=== PATIENT | male | born 1965 | race African-American/Black ===

== ENCOUNTER 2016-09-09 01:06 | Emergency (ER) | payer OTHER ==
[~2016-09-09] VITALS: Ht 165.1 cm; Wt 58.3 kg
[2016-09-09] MEDS ORDERED: NEURONTIN100 MG PO (01:30)
[2016-09-09] MEDS ORDERED: NAPROXEN500 MG PO (01:30)
[2016-09-09] MEDS ORDERED: LOTRISONE LOTIO30 ML TP (01:30)
[2016-09-09 01:55] VITALS: BP 111/86
== END 2016-09-09 02:11 | disposition home or self-care (01) ==
LOC: EME → EXP 01:06 → EME 01:06 → EDBD 01:06 → EXP 02:11
DX: M54.31 Sciatica, right side (principal); B35.3 Tinea pedis; F17.200 Nicotine dependence, unspecified, uncomplicated
CPT/HCPCS: 99281; 99284; J8540

== ENCOUNTER 2017-03-13 08:39 | Emergency (ER) | payer OTHER ==
[~2017-03-13] VITALS: Ht 165.1 cm; Wt 62.1 kg
[~2017-03-13 08:39] MED LIST: LOTRISONE LOTIO30 ML TP; NAPROXEN500 MG PO; NEURONTIN100 MG PO
[2017-03-13] MEDS ORDERED: VENTOLIN HFA18 GM IH (09:47)
[2017-03-13 09:54] LABS: MCHC 34.2 G/DL (30.0-36.0); MCV 87.8 FL (86-99); PLATELET COUNT 351 K/uL (156-360); RBC DIS.WIDTH-CV 14.6 % (11.8-14.6); RBC DIS.WIDTH-SD 47.2 % (39-53); RED BLOOD COUNT 4.33 M/uL (4.00-5.50); WHITE BLOOD COUNT 18.9 K/uL (4.1-10.2)
[2017-03-13 10:02] LABS: CHLORIDE 102 mEq/L (99-109); POTASSIUM 3.8 mEq/L (3.7-5.4); SODIUM 133 mEq/L (136-147)
[2017-03-13 10:03] LABS: GLUCOSE 122 mg/dL (70-99)
[2017-03-13 10:07] LABS: CREATININE 0.9 mg/dL (0.6-1.3); GFR ESTIMATE (CALCULATED) > 59 mL/min/ (58.99-99999)
[2017-03-13 10:08] LABS: UREA NITROGEN (BUN) 11 mg/dL (9-23)
[2017-03-13] MEDS ORDERED: ZITHROMAX Z-PA250 MG PO (10:20)
[2017-03-13] MEDS ORDERED: TESSALON200 MG PO (10:20)
[2017-03-13 10:33] VITALS: BP 115/78
== END 2017-03-13 10:34 | disposition home or self-care (01) ==
LOC: EME 08:39
PROVIDERS: Nurse Practitioner Family
DX: J18.9 Pneumonia, unspecified organism (principal); J06.9 Acute upper respiratory infection, unspecified; F17.200 Nicotine dependence, unspecified, uncomplicated
CPT/HCPCS: 71046; 80048; 85027; 94640; 99281; 99283

== ENCOUNTER 2017-03-13 22:49 | Inpatient (IN) | payer OTHER ==
[~2017-03-13] VITALS: Ht 165.1 cm; Wt 51.1 kg
[~2017-03-13 22:49] MED LIST changes: +TESSALON200 MG PO; +VENTOLIN HFA18 GM IH; +ZITHROMAX Z-PA250 MG PO
[2017-03-13 23:20] LABS: HEMATOCRIT 36.9 % (38.0-50.0); HEMOGLOBIN 12.9 G/DL (12.5-16.6); MCH 30.1 PG (29.0-34.0); PLATELET COUNT 367 K/uL (156-360); RBC DIS.WIDTH-CV 14.4 % (11.8-14.6); RBC DIS.WIDTH-SD 45.6 % (39-53); RED BLOOD COUNT 4.29 M/uL (4.00-5.50); WHITE BLOOD COUNT 21.3 K/uL (4.1-10.2)
[2017-03-13 23:30] LABS: CHLORIDE 104 mEq/L (99-109); POTASSIUM 3.6 mEq/L (3.7-5.4); SODIUM 135 mEq/L (136-147)
[2017-03-13 23:32] LABS: GLUCOSE 162 mg/dL (70-99)
[2017-03-13 23:35] LABS: GFR ESTIMATE (CALCULATED) > 59 mL/min/ (58.99-99999)
[2017-03-13 23:36] LABS: UREA NITROGEN (BUN) 17 mg/dL (9-23)
[2017-03-13 23:44] LABS: TROP-I INTERPRETATION NEGATIVE; TROPONIN-I < 0.01 ng/mL (0.0-0.30)
[2017-03-14 00:41] LABS: ALBUMIN 3.9 g/dL (3.2-4.8)
[2017-03-14 00:43] LABS: TOTAL PROTEIN 8.6 g/dL (6.4-8.3)
[2017-03-14 00:45] LABS: TOTAL BILIRUBIN 0.4 mg/dL (0.0-1.0)
[2017-03-14 00:46] LABS: ALKALINE PHOSPHATASE 107 IU/L (3-129)
[2017-03-14 00:49] LABS: ALT (GPT) 9 IU/L (3-49); AST (GOT) 11 IU/L (2-34); DIRECT BILIRUBIN 0.3 mg/dL (0.0-0.3)
[2017-03-14 00:50] LABS: CREATINE KINASE 99 IU/L (1-294); LIPASE 8 U/L (1.0-51.0)
[2017-03-14 04:09] VITALS: BP 116/74
[2017-03-14 07:30] VITALS: BP 120/71
[2017-03-14 11:19] LABS: HEMOGLOBIN A1c (GLYCOHEMOGLOB) 6.5 % (Below 5.7)
[2017-03-14 16:54] VITALS: BP 129/75
[2017-03-14 23:25] VITALS: BP 120/72
[2017-03-15 05:48] LABS: BASOPHIL (%) 0.1 % (0-1); EOSINOPHIL (%) 0.1 % (0-5); HEMATOCRIT 29.8 % (38.0-50.0); IMMATURE GRANULOCYTE (%) 0.8 % (0.0-0.7); LYMPHOCYTE (%) 11.7 % (15-42); LYMPHOCYTE COUNT 1.8 K/uL (1.0-2.8); MCH 29.2 PG (29.0-34.0); MCHC 33.9 G/DL (30.0-36.0); MCV 86.1 FL (86-99); MONOCYTE (%) 7.6 % (3-12); MONOCYTE COUNT 1.2 K/uL (0-0.8); NEUTROPHIL (%) 79.7 % (45-76); NEUTROPHIL COUNT 12.4 K/uL (1.8-6.4); PLATELET COUNT 343 K/uL (156-360); RBC DIS.WIDTH-CV 14.8 % (11.8-14.6); RBC DIS.WIDTH-SD 47.2 % (39-53); RED BLOOD COUNT 3.46 M/uL (4.00-5.50); WHITE BLOOD COUNT 15.6 K/uL (4.1-10.2)
[2017-03-15 05:51] LABS: CHLORIDE 110 MEQ/L (99-109); CREATININE 0.7 MG/DL (0.6-1.3); GFR ESTIMATE (CALCULATED) > 59 mL/min/ (58.99-99999); GLUCOSE 121 mg/dL (70-99); POTASSIUM 3.7 MEQ/L (3.7-5.4); SODIUM 141 MEQ/L (136-147); UREA NITROGEN (BUN) 12 mg/dL (9-23)
[2017-03-15 05:57] LABS: HEMOGLOBIN 10.1 G/DL (12.5-16.6)
[2017-03-15 07:50] VITALS: BP 123/81
[2017-03-15 15:20] VITALS: BP 120/65
[2017-03-15 23:35] LABS: TROP-I INTERPRETATION NEGATIVE; TROPONIN-I < 0.01 ng/mL (0.0-0.30)
[2017-03-16 00:41] VITALS: BP 102/72
[2017-03-16 08:35] VITALS: BP 108/68
[2017-03-16 09:23] LABS: HEMATOCRIT 29.1 % (38.0-50.0); HEMOGLOBIN 9.7 G/DL (12.5-16.6); MCH 28.8 PG (29.0-34.0); MCHC 33.3 G/DL (30.0-36.0); MCV 86.4 FL (86-99); PLATELET COUNT 368 K/uL (156-360); RBC DIS.WIDTH-CV 15.1 % (11.8-14.6); RBC DIS.WIDTH-SD 48.4 % (39-53); RED BLOOD COUNT 3.37 M/uL (4.00-5.50); WHITE BLOOD COUNT 12.3 K/uL (4.1-10.2)
[2017-03-16 09:44] LABS: CHLORIDE 114 MEQ/L (99-109); CREATININE 0.7 MG/DL (0.6-1.3); GFR ESTIMATE (CALCULATED) > 59 mL/min/ (58.99-99999); GLUCOSE 106 mg/dL (70-99); POTASSIUM 3.9 MEQ/L (3.7-5.4); SODIUM 143 MEQ/L (136-147); UREA NITROGEN (BUN) 14 mg/dL (9-23)
[2017-03-16 09:47] LABS: ABS NEUTROPHIL COUNT 8.8; ATYPICAL LYMPHOCYTE 0.9 %; BAND NEUTROPHILS 1.7 % (0-8.0); EOSINOPHIL ABS CT 0.1; EOSINOPHILS 0.9 % (0-5.0); LYMPHOCYTES 23.5 % (15.0-45.0); MONOCYTES 3.5 % (0-9.0); NUCLEATED RBC'S 0.9; SEG.NEUTROPHILS 69.5 % (46.0-76.0); SMUDGE CELLS 7.8
[2017-03-16 12:21] VITALS: BP 116/62
[2017-03-16 16:06] VITALS: BP 130/64
[2017-03-16 23:57] VITALS: BP 126/79
[2017-03-17 07:50] VITALS: BP 135/80
[2017-03-17 13:32] LABS: HEMATOCRIT 28.9 % (38.0-50.0); MCHC 34.6 G/DL (30.0-36.0); MCV 86.8 FL (86-99); PLATELET COUNT 350 K/uL (156-360); RBC DIS.WIDTH-CV 15.5 % (11.8-14.6); RBC DIS.WIDTH-SD 49.5 % (39-53); RED BLOOD COUNT 3.33 M/uL (4.00-5.50); WHITE BLOOD COUNT 11.8 K/uL (4.1-10.2)
[2017-03-17 13:54] LABS: BASOPHIL (%) 0.2 % (0-1); EOSINOPHIL (%) 0.1 % (0-5); IMMATURE GRANULOCYTE (%) 2.4 % (0.0-0.7); LYMPHOCYTE (%) 12.1 % (15-42); LYMPHOCYTE COUNT 1.4 K/uL (1.0-2.8); MONOCYTE (%) 3.6 % (3-12); MONOCYTE COUNT 0.4 K/uL (0-0.8); NEUTROPHIL (%) 81.6 % (45-76); NEUTROPHIL COUNT 9.7 K/uL (1.8-6.4)
[2017-03-18 00:16] VITALS: BP 132/73
[2017-03-18 07:18] VITALS: BP 135/79
[2017-03-18] MEDS ORDERED: OSELTAMIVIR PHO75 MG PO (09:28)
[2017-03-18] MEDS ORDERED: TRAMADOL HCL50 MG PO (09:28)
[2017-03-18] MEDS ORDERED: CEFDINIR300 MG PO (09:28)
[2017-03-18] MEDS ORDERED: MYCELEX10 MG MM (09:28)
== END 2017-03-18 16:24 | disposition home or self-care (01) | DRG 194 ==
LOC: EME 22:49 → EDOF 03-14 02:40 → 3EAST 03-14 02:40 → ENRESERV 03-14 02:42 → 3EAST 03-14 03:45
PROVIDERS: Emergency Medicine; Hospitalist; Internal Medicine; Physician Assistant
DX: J10.08 Influenza due to other identified influenza virus with other specified pneumonia (principal); J10.1 Influenza due to other identified influenza virus with other respiratory manifestations; J13 Pneumonia due to Streptococcus pneumoniae; E86.0 Dehydration; J21.9 Acute bronchiolitis, unspecified; R73.9 Hyperglycemia, unspecified; J31.0 Chronic rhinitis; K52.9 Noninfective gastroenteritis and colitis, unspecified; B37.0 Candidal stomatitis; D72.829 Elevated white blood cell count, unspecified; R09.02 Hypoxemia; Z87.891 Personal history of nicotine dependence; F12.90 Cannabis use, unspecified, uncomplicated; Z68.1 Body mass index [BMI] 19.9 or less, adult; Z79.899 Other long term (current) drug therapy
CPT/HCPCS: 71046; 71260; 74177; 80048; 80048 91; 80076; 82550; 82948; 83036; 83605; 83690; 83880; 84484; 85025; 85027; 87040; 87070; 87077; 87106; 87177; 87181; 87205; 87329; 87449; 87502; 87506; 87651 90; 87801; 93005; 94640; 94640 76; 94760; 99202; 99281; 99283; 99285; J0696; J1650; J1956; J2270; J7030; J7512